=== PATIENT | female | born 1960 | race Caucasian/White ===

== ENCOUNTER 2016-08-24 07:18 | Inpatient (IN) ==
--- NOTE | 2016-08-23 20:58 | Discharge Summary ---
<Donita Webber - Last Filed: 08/24/16 09:42> Date of Encounter: 08/24/16 - Discharge Diagnosis (1) Arthritis of knee, left Priority: Primary Status: Acute (2) Coronary artery disease Priority: Secondary Status: Chronic Qualifiers: Coronary Disease-Associated Artery/Lesion type: unspecified vessel or lesion type [place] vs. transplanted heart: unspecified whether [place] or transplanted heart Associated angina: angina presence unspecified Qualified Code(s): I25.10 - Atherosclerotic heart disease of [place] coronary artery without angina pectoris (3) Morbid obesity with BMI of 50.0-59.9, adult Priority: Secondary Status: Chronic (4) Obstructive sleep apnea Priority: Secondary Status: Chronic (5) Asthma Priority: Secondary Status: Chronic Qualifiers: Asthma severity: unspecified severity Asthma complication type: uncomplicated Qualified Code(s): J45.909 - Unspecified asthma, uncomplicated (6) Hypertension Status: Chronic Qualifiers: Hypertension type: unspecified secondary hypertension Qualified Code(s): I15.9 - Secondary hypertension, unspecified; I15 - Secondary hypertension - Discharge Medications Home Medications: Aspirin Enteric Coated [Aspirin EC] 325 mg PO DAILY #21 tablet. 08/23/16 [Rx] OxyCODONE Immed Rel [Roxicodone 5 MG] 5 - 10 mg PO Q6HR PRN #40 tablet 08/23/16 [Rx] Albuterol Sulfate [Albuterol Inhaler] 2 puff IH Q4HR PRN 08/24/16 [History] Amlodipine Besylate 10 mg PO DAILY 08/24/16 [History] Carvedilol [Coreg] 6.25 mg PO BIDWM 08/24/16 [History] Clopidogrel [Plavix] 75 mg PO DAILY 08/24/16 [History] Cyclobenzaprine [Flexeril] 10 mg PO TID 08/24/16 [History] Duloxetine [Cymbalta] 30 mg PO BID 08/24/16 [History] Furosemide [Lasix] 20 mg PO DAILY PRN 08/24/16 [History] Gabapentin [Neurontin] 600 mg PO TID 08/24/16 [History] Losartan/Hydrochlorothiazide [Hyzaar 100-25 Tablet] 1 each PO DAILY 08/24/16 [ History] Naproxen [Naprosyn] 500 mg PO BID 08/24/16 [History] Omeprazole [PriLOSEC] 40 mg PO DAILY 08/24/16 [History] Sertraline [Zoloft] 100 mg PO DAILY 08/24/16 [History] Allergies/Adverse Reactions: Allergies Penicillins [PCN] Allergy (Verified 08/24/16 08:01) See Comments paralized Primary care physician: LAMONT Edmond - Patient Status Disposition: Transfer Inpatient Rehab Fac Condition: Good - Discharge Instructions Follow Up With: Rei Rivera MD [Partnered Physician] - 09/22/16 7:40 am Donita Webber PAC [Physician Dental Patient Coordinator] - 09/02/16 8:15 am Jamia Keating CNP [Primary Care Provider] - - Hospital Course Hospital course: Ms. Clemente is a 56 year old female - Time Spent with Patient Total time spent providing and/or coordinating discharge services: <Rei Rivera - Last Filed: 08/27/16 08:15> Date of Encounter: 08/27/16 Time of Encounter: 08:14 - Discharge Diagnosis (1) Arthritis of knee, left Priority: Primary Status: Acute (2) Asthma Priority: Secondary Status: Chronic Qualifiers: Asthma severity: unspecified severity Asthma complication type: uncomplicated Qualified Code(s): J45.909 - Unspecified asthma, uncomplicated (3) Obstructive sleep apnea Priority: Secondary Status: Chronic (4) Morbid obesity with BMI of 50.0-59.9, adult Priority: Secondary Status: Chronic (5) Coronary artery disease Status: Chronic Qualifiers: Coronary Disease-Associated Artery/Lesion type: unspecified vessel or lesion type [place] vs. transplanted heart: unspecified whether [place] or transplanted heart Associated angina: angina presence unspecified Qualified Code(s): I25.10 - Atherosclerotic heart disease of [place] coronary artery without angina pectoris (6) Hypertension Priority: Secondary Status: Chronic Qualifiers: Hypertension type: unspecified secondary hypertension Qualified Code(s): I15.9 - Secondary hypertension, unspecified; I15 - Secondary hypertension (7) Acute renal injury Priority: Primary Status: Acute (8) Acute blood loss anemia Priority: Primary Status: Acute Primary care physician: LAMONT Edmond - Patient Status Functional capacity at discharge: uses cane/walker Overall status at discharge: patient is progressing back to baseline - Hospital Course Hospital course: Ms. Clemente is a 56 year old female The patient had an uneventful postoperative course. They received antibiotics and physical therapy and were discharged in stable condition. There will follow -up in the office in 2 weeks. Patient had change renal function which normalized within 24 hours after hydration. Discharge stable condition on aspirin for DVT prophylaxis. - Time Spent with Patient Total time spent providing and/or coordinating discharge services:
[2016-08-24] MEDS ORDERED: Albuterol 2.5 MG/3 ML NEBULIZER IH ONE ×2 (07:36→11:14)
[2016-08-24] MEDS ORDERED: Clindamycin 900 MG/50 ML 900 MG/50 ML IV.SOLN IVPB ONE (07:36)
[2016-08-24] MEDS ORDERED: Ringers Solution, Lactated 1,000 ML IVC SCH (07:45)
--- NOTE | 2016-08-24 07:54 | History & Physical Report ---
Date of Encounter: 08/24/16 Time of Encounter: 07:53 24 Hour HP Update - Instructions Instructions: If the History and Physical is less than 30 days old and was completed prior to A.M. admission and or procedure and has NOT been updated on calendar day of procedure please complete this update prior to performing procedure. - Update Patient reports changes in Medical Condition: No Changes in assessment/condition: No Changes in Medication: No Preop tests/diagnostics Reviewed: Yes Surgery Remains Indicated: Yes Consent for Planned Operative Procedure(s) Verified: Yes - Pre-Operative Checklist Preoperative Checklist Indicated: No Prophylactic Antibiotic Ordered: Yes Is VTE Prophylaxis Indicated?: Yes
[2016-08-24] MEDS ORDERED: *HR* FentaNYL (PF) 100 MCG/2 ML VIAL ONE (08:30)
[2016-08-24] MEDS ORDERED: *HR* Midazolam HCl 2 MG/2 ML VIAL ONE (08:31)
[2016-08-24] MEDS ORDERED: *HR* Propofol 200 MG/20 ML VIAL IVP ONE (08:31)
[2016-08-24] MEDS ORDERED: Famotidine 20 MG/2 ML VIAL IVP ONE (08:43)
[2016-08-24] MEDS ORDERED: *HR* HYDROmorphone (PF) 1 MG/ML SYRINGE IVP PRN ×2 (08:53→12:27)
--- NOTE | 2016-08-24 09:03 | Anesthesia Evaluation PreOp ---
Date of Encounter: 08/24/16 Time of Encounter: 09:00 - Past History Planned Operation: Left TKA Cardiac History: AR, HTN, Hyperlipidemia Pulmonary History: Asthma, SHAYNE Dx (CPAP) BELT PUNCHER History: Denies Any Significant HX Other Medical History: GERD, Other ([place], BiPolar, Depression) Anesthesia History: No Prior Anesthetic Complications : No Alcohol Use: none Drug use: none Medications and Allergies Aspirin Enteric Coated [Aspirin EC] 325 mg PO DAILY #21 tablet. 08/23/16 [Rx] OxyCODONE Immed Rel [Roxicodone 5 MG] 5 - 10 mg PO Q6HR PRN #40 tablet 08/23/16 [Rx] Albuterol Sulfate [Albuterol Inhaler] 2 puff IH Q4HR PRN 08/24/16 [History] Amlodipine Besylate 10 mg PO DAILY 08/24/16 [History] Carvedilol [Coreg] 6.25 mg PO BIDWM 08/24/16 [History] Clopidogrel [Plavix] 75 mg PO DAILY 08/24/16 [History] Cyclobenzaprine [Flexeril] 10 mg PO TID 08/24/16 [History] Duloxetine [Cymbalta] 30 mg PO BID 08/24/16 [History] Furosemide [Lasix] 20 mg PO DAILY PRN 08/24/16 [History] Gabapentin [Neurontin] 300 mg PO TID 08/24/16 [History] Losartan/Hydrochlorothiazide [Hyzaar 100-25 Tablet] 1 each PO DAILY 08/24/16 [ History] Naproxen [Naprosyn] 500 mg PO BID 08/24/16 [History] Omeprazole [PriLOSEC] 40 mg PO DAILY 08/24/16 [History] Sertraline [Zoloft] 100 mg PO DAILY 08/24/16 [History] Allergies Penicillins [PCN] Allergy (Verified 08/24/16 08:01) See Comments paralized - Meds/Allergy Pre-op Review Medications Reviewed: Yes Allergies Reviewed: Yes Beta Blockers on Current Med List: Yes (Took Coreg today 0500) Anesthesia Results - Labs Laboratory Tests 08/11/16 08/11/16 13:55 13:55 Hgb 12.5 Hct 39.5 Plt Count 341 Sodium 141 Potassium 3.8 BUN 8 Creatinine 0.93 - Imaging EKG: report reviewed (SR with Arrhythmia) Anesthesia Exam O2 Sat Height 1.7 m Height 1.7 m Height 1.7 m Weight 145.15 kg Weight 145.15 kg Weight 145.15 kg O2 Sat by Pulse Oximetry 95 O2 Sat by Pulse Oximetry 95 Vital Signs Temp Pulse Resp BP Pulse Ox 97.7 F 63 18 144/74 95 08/24/16 07:41 08/24/16 07:41 08/24/16 07:41 08/24/16 07:41 08/24/16 07:41 Height: 5'7 Weight: 320 lbs NPO (# of Hours): MN - HEENT Pupil (Motor): Pupils equal, EOMI Mallampati: III Teeth: Normal Oral Opening: Less than or equal to 3 - BELT PUNCHER LOC: Oriented BELT PUNCHER Motor: Normal RUE, Normal LUE, Normal RLE, Normal LLE, Normal Face BELT PUNCHER Sensory: Normal: RUE, LUE, RLE, LLE, Face - Cardiac Rhythm: Regular Murmur: None JVD: No Carotid Bruit: No - Pulmonary Breath Sounds: bilateral Clear Respiratory Effort: Symmetrical Anesthesia Assess/Plan ASA Score: 3 (CAD, HTH, SHAYNE, [place]) Modified [place] Scale for Level of Consciousness: Cooperative, oriented, and tranquil Anesthetic Plan: General, Regional Autologous Blood: Yes Monitoring Plan: Standard Monitors Recovery Plan: PACU (Discussed GA and RA, agrees to proceed)
[2016-08-24] MEDS ORDERED: Tetracaine/PF 20 MG/2 ML AMPUL SPINA ONE (09:36)
--- NOTE | 2016-08-24 10:14 | Anesthesia Procedures ---
Date of Encounter: 08/24/16 Time of Encounter: 09:00 Procedures: Anesthesia - Nerve Block Procedure Date: 08/24/16 Time: 09:50 Pre-op Diagnosis: Left Knee OA Surgical Procedure: Left TKA Checklist: Correct Patient Identifier Correct side: Left Blood Thinner: Yes Monitor Applied: EKG, BP, Pulse Oximetry Supplemental Oxygen via Nasal Cannula (L/min): 2 Sedation: Versed (mg): 2 Sedation: Fentanyl (mcg): 100 Indication: Post Op Analgesia Pre-op Neuro Deficits: No Block Type: Femoral Catheter placed: No Depth at skin (cm): 3 Sterile Technique: Yes Ultrasound used: Yes Anatomy identified: Yes Visual spread of Local: Yes Neuro Stimulation: Yes Nerve Stimulator Range: 0.2 - 0.4 mA Blood on Needle Aspiration: No Smooth Injection of Local: Yes Pain with Injection of Local: No Prep: Chlorhexadine, Alcohol Needle: 22 x 50 mm Stimuplex Local: Tetracaine (20), Other (Bupivacaine) Volume (cc): 30 Number of Attempts: 1 Complications: None/effective block Vitals: Vital Signs/O2 Sat/Glucose, Most Current Temp Pulse Resp BP Pulse Ox 08/24/16 09:36 62 16 154/76 98 08/24/16 09:28 62 17 149/78 95 08/24/16 08:15 18 144/74 95 08/24/16 07:41 97.7 F 63 18 144/74 95
[2016-08-24] MEDS ORDERED: *HR* HYDROmorphone 2 MG/ML SYRINGE ONE (10:21)
--- NOTE | 2016-08-24 10:38 | Orthopedic Operative Note ---
Date of procedure: 08/24/16 Pre-op diagnosis: Left knee arthritis Post-op diagnosis: same Procedure: Procedure: Left Total knee replacement Estimated blood loss: 200 cc Hardware: Arthrex Femur: 6 Tibia: 4 PS insert: 13 Patella: 37 Exam Under anesthesia: Full flexion loss extension 10 degrees no instability Procedural Notes: Patient noted to have grade 4 arthritic changes medial compartment grade 3 arthritic changes patellofemoral joint. Operative procedure: The patient was brought to the operating room and placed on the operating room table. After general anesthesia was administered the operative knee was examined. Findings were noted in the exam under anesthesia. The operative extremity was prepped and draped in sterile surgical fashion. The patient received IV antibiotics prior to skin incision. A standard midline incision was made centered over the patella. The incision was made through the skin and subcutaneous tissue. A medial parapatellar tendon approach was performed. Care was taken to preserve tissue along the medial aspect of the patella. And to protect the patella tendon. The deep MCL was released off the medial tibia. The infra patella fat pad was excised. Knee was brought into flexion. Patient noted to have grade 4 arthritic changes medial compartment grade 3 arthritic changes patellofemoral joint. The entry hole was made for the intramedullary femoral guide. The guide was seated in 6 degrees of valgus. Anterior cut was made followed by the distal cut. The ACL the PCL the medial and the lateral menisci were excised. The tibia was subluxed forward. The entry hole was made for the intramedullary tibial guide. Guide was seated to resect 2 mm off the more abnormal side. The knee was brought into flexion the distal femur was sized to a 6. The femoral guide was seated, the anterior cut was made followed by the posterior condylar cut, followed by the chamfer cuts. The finishing guide was seated the box cut was made and the lug holes were drilled. The tibia was sized to a 4 , the tibial tray was seated and prepared with the large drill followed by the fin cutter. Trial reduction revealed full extension no varus valgus instability with the appropriate 13 PS Darcy. The patella was everted and cut was made at the level of the insertion of the quadriceps and patella tendon. The patella was sized to a 37 the guide was seated and the lug holes are drilled. Trial reduction revealed excellent patella tracking. All trial components were removed all bony surfaces were irrigated. The tibia was cemented first followed by the femur. The 13 PS Darcy was seated and the knee was brought into full extension. The patella was cemented and held in place with the patellar holding clamp. After the cement had hardened, the knee sat for 2 minutes with a Betadine saline solution. The knee was then irrigated out with 2 L of pulse irrigation. The extensor mechanism was closed with #2 FiberWire suture and #2 PDS suture. The subcutaneous tissue was then irrigated and closed deep with #1 PDS suture superficially with 0 PDS suture and skin was closed with skin jose manuel and Dermabond. The patient was then placed in a sterile dressing and a postoperative brace extubated and transferred to recovery room in stable condition. Anesthesia: SUMA Surgeon: Rei Rivera Bursar: Donita Webber Condition: stable Disposition: PACU
[2016-08-24] MEDS ORDERED: Dexamethasone 4 MG/ML VIAL ONE (10:39)
[2016-08-24] MEDS ORDERED: Ondansetron 4 MG/2 ML VIAL ONE (10:39)
[2016-08-24] MEDS ORDERED: Albuterol 2.5 MG/3 ML NEBULIZER ONE (11:15)
[2016-08-24 11:25] LABS: Hematocrit 39.2 % (35.3-44.9); Hemoglobin 12.2 g/dL (11.5-15.4)
--- NOTE | 2016-08-24 11:54 | Anesthesia Evaluation Post Op ---
Date of Encounter: 08/24/16 Time of Encounter: 11:52 - Vital Signs Vital Signs: vss - Lungs Lungs: Clear Ascult./Percussion (to be maintained on CPAP as home) - Airway Airway: Non-obstructed - Cardiovascular Regular Rate - Mental Status Mental Status: Asleep with brisk response to light stimulation - Pain Pain Scale used: Osborn-Jolene (Faces) (tolerable) - Nausea Vomiting Nausea Vomiting: Not Present - Discharge PostOp Status: Transfer Patient to floor (CPAP to be maintained, and continous pulse ox.)
[2016-08-24] MEDS ORDERED: Sennosides 8.6 MG TABLET PO PRN (12:27)
[2016-08-24] MEDS ORDERED: Acetaminophen 325 MG TABLET PO PRN (12:27)
[2016-08-24] MEDS ORDERED: Ondansetron 4 MG/2 ML VIAL IVP PRN (12:27)
[2016-08-24] MEDS ORDERED: Furosemide 20 MG TABLET PO PRN (12:27)
[2016-08-24] MEDS ORDERED: MOM Conc 10 ML UD.LIQ PO PRN (12:27)
[2016-08-24] MEDS ORDERED: Temazepam 15 MG CAPSULE PO PRN (12:27)
[2016-08-24] MEDS ORDERED: Albuterol Neb 1.25 MG/3 ML VIAL IH ONE (12:27)
[2016-08-24] MEDS ORDERED: Naloxone 0.4 MG/ML INJ IVP PRN (12:27)
[2016-08-24] MEDS: Ringers Solution, Lactated 1,000 ML IVC SCH (13:03)
[2016-08-24] MEDS: Gabapentin 300 MG CAPSULE PO SCH ×2 (14:49→20:03)
[2016-08-24] MEDS: *HR* OxyCODONE Immed Rel 5 MG TABLET PO PRN (14:54)
[2016-08-24] MEDS ORDERED: *HR* Enoxaparin 30 MG/0.3 ML SYRINGE SQ SCH (18:00)
[2016-08-24] MEDS: *HR* Enoxaparin 30 MG/0.3 ML SYRINGE SQ SCH (18:05)
[2016-08-24] MEDS: Clindamycin 900 MG/50 ML 900 MG/50 ML IV.SOLN IVPB SCH (18:05)
[2016-08-25] MEDS: *HR* OxyCODONE Immed Rel 5 MG TABLET PO PRN ×4 (00:09→17:43)
[2016-08-25] MEDS: Clindamycin 900 MG/50 ML 900 MG/50 ML IV.SOLN IVPB SCH (01:11)
[2016-08-25] MEDS: Ringers Solution, Lactated 1,000 ML IVC SCH (01:12)
[2016-08-25 06:08] LABS: Hematocrit 36.1 % (35.3-44.9); Hemoglobin 11.1 g/dL (11.5-15.4)
[2016-08-25 06:18] LABS: Calcium 8.9 mg/dL (8.6-10.8); Potassium 4.2 mEq/L (3.5-4.5)
--- NOTE | 2016-08-25 06:35 | Orthopedics Progress Note ---
Date of Encounter: 08/25/16 Time of Encounter: 06:34 - Assessment and Plan (1) Arthritis of knee, left Current Visit: Yes Status: Acute (2) Asthma Current Visit: Yes Status: Chronic Qualifiers: Asthma severity: unspecified severity Asthma complication type: uncomplicated Qualified Code(s): J45.909 - Unspecified asthma, uncomplicated (3) Obstructive sleep apnea Current Visit: Yes Status: Chronic (4) Morbid obesity with BMI of 50.0-59.9, adult Current Visit: Yes Status: Chronic (5) Coronary artery disease Current Visit: Yes Status: Chronic Qualifiers: Coronary Disease-Associated Artery/Lesion type: unspecified vessel or lesion type [place] vs. transplanted heart: unspecified whether [place] or transplanted heart Associated angina: angina presence unspecified Qualified Code(s): I25.10 - Atherosclerotic heart disease of [place] coronary artery without angina pectoris (6) Hypertension Current Visit: Yes Status: Chronic Qualifiers: Hypertension type: unspecified secondary hypertension Qualified Code(s): I15.9 - Secondary hypertension, unspecified; I15 - Secondary hypertension Subjective Interval history: Patient was seen this morning doing well without complaints. Afebrile vital signs stable. Operative extremity: Neurovascularly intact Dressing clean dry and intact Calves nontender Assessment and plan: Continue with postoperative care Hematocrit 36 Objective Vital signs: Vital Signs Temp Pulse Resp BP Pulse Ox 08/25/16 03:44 98.7 F 66 16 128/86 97 08/24/16 23:46 98.6 F 65 17 103/70 98 08/24/16 22:05 14 98 08/24/16 19:57 97.8 F 63 17 116/70 92 L 08/24/16 16:01 56 18 116/69 97 08/24/16 15:14 97.3 F L 56 18 116/69 97 08/24/16 14:35 97.8 F 58 15 119/65 96 08/24/16 13:30 97.8 F 59 10 132/99 96 08/24/16 13:03 97.7 F 57 9 127/81 97 08/24/16 12:41 15 97 08/24/16 12:32 98.3 F 60 16 99/65 94 L 08/24/16 12:15 16 98 08/24/16 12:09 98.9 F 60 16 109/63 97 08/24/16 11:59 65 14 116/73 97 08/24/16 11:49 70 14 127/56 97 08/24/16 11:39 97.5 F L 68 16 113/69 95 08/24/16 11:29 63 14 100/67 96 08/24/16 11:19 67 12 114/59 100 08/24/16 11:09 98.1 F 61 12 103/73 94 L 08/24/16 09:36 62 16 154/76 98 08/24/16 09:28 62 17 149/78 95 08/24/16 08:15 18 144/74 95 08/24/16 07:41 97.7 F 63 18 144/74 95 Intake and Output 08/24/16 08/24/16 08/25/16 15:59 23:59 07:59 Intake Total 50 / 50 150 / 150 1000 / 1000 Output Total 200 / 200 Balance -150 / -150 150 / 150 1000 / 1000 Intake: IV Fluids 50 / 50 50 / 50 1000 / 1000 Lactated Ringers 1,000 ML 1000 / 1000 @ 75 mls/hr IVC .[id number] GE Rx#:[id number] Cleocin 900 MG/50 ML 900 50 / 50 50 / 50 mg In 50 ml @ 50 mls/hr IVPB Q8H GE Rx#: [id number] Oral 0 / 0 100 / 100 Output: Estimated Blood Loss 200 / 200 Other: Meal Dinner Percent of Meal Consumed 75% Weight 145.15 kg - Labs CBC & BMP: 08/25/16 05:11 08/25/16 05:11 Labs: Abnormal lab results Hgb 11.1 g/dL (11.5-15.4) L 08/25/16 05:11 BUN 23 mg/dL (7-20) H 08/25/16 05:11 Creatinine 1.90 mg/dL (0.57-1.11) H 08/25/16 05:11 Est GFR ( Amer) 33 (> 60) L 08/25/16 05:11 Est GFR (Non-Af Amer) 27 (> 60) L 08/25/16 05:11 Glucose 114 mg/dL (70-99) H 08/25/16 05:11 - VTE Documentation of Mechanical Device: Venous foot pump, device Consult Discharge Plan - Plan Referrals: Jamia Keating CNP [Primary Care Provider] -
[2016-08-25] MEDS: *HR* Enoxaparin 30 MG/0.3 ML SYRINGE SQ SCH ×2 (07:31→17:43)
[2016-08-25] MEDS ORDERED: 0.9 % Sodium Chloride 1,000 ML IVC ONE (08:13)
[2016-08-25] MEDS: Losartan/HCTZ 50-12.5 TABLET PO SCH (08:41)
[2016-08-25] MEDS: amLODIPine 5 MG TABLET PO SCH (08:42)
[2016-08-25] MEDS: Gabapentin 300 MG CAPSULE PO SCH ×3 (08:42→21:44)
[2016-08-26] MEDS: *HR* OxyCODONE Immed Rel 5 MG TABLET PO PRN ×3 (01:51→17:22)
[2016-08-26] MEDS: *HR* Enoxaparin 30 MG/0.3 ML SYRINGE SQ SCH ×2 (06:15→17:21)
[2016-08-26 06:42] LABS: Hemoglobin 9.9 g/dL (11.5-15.4)
[2016-08-26 06:53] LABS: Calcium 8.5 mg/dL (8.6-10.8); Potassium 3.9 mEq/L (3.5-4.5)
--- NOTE | 2016-08-26 07:37 | Orthopedics Progress Note ---
Date of Encounter: 08/26/16 Time of Encounter: 07:36 - Assessment and Plan (1) Arthritis of knee, left Current Visit: Yes Status: Acute (2) Asthma Current Visit: Yes Status: Chronic Qualifiers: Asthma severity: unspecified severity Asthma complication type: uncomplicated Qualified Code(s): J45.909 - Unspecified asthma, uncomplicated (3) Obstructive sleep apnea Current Visit: Yes Status: Chronic (4) Morbid obesity with BMI of 50.0-59.9, adult Current Visit: Yes Status: Chronic (5) Coronary artery disease Current Visit: Yes Status: Chronic Qualifiers: Coronary Disease-Associated Artery/Lesion type: unspecified vessel or lesion type [place] vs. transplanted heart: unspecified whether [place] or transplanted heart Associated angina: angina presence unspecified Qualified Code(s): I25.10 - Atherosclerotic heart disease of [place] coronary artery without angina pectoris (6) Hypertension Current Visit: Yes Status: Chronic Qualifiers: Hypertension type: unspecified secondary hypertension Qualified Code(s): I15.9 - Secondary hypertension, unspecified; I15 - Secondary hypertension (7) Acute renal injury Current Visit: Yes Status: Acute Subjective Interval history: Patient was seen this morning doing well without complaints. Afebrile vital signs stable. Operative extremity: Neurovascularly intact Dressing clean dry and intact Calves nontender Assessment and plan: Continue with postoperative care Creatinine improving hct 32 Objective Vital signs: Vital Signs Temp Pulse Resp BP Pulse Ox 08/26/16 06:40 98.7 F 84 16 134/73 95 08/26/16 04:04 98.9 F 82 16 130/69 98 08/26/16 01:45 96.7 F L 80 18 137/83 100 08/26/16 00:30 17 97 08/25/16 21:50 98.4 F 76 19 118/73 96 08/25/16 17:40 71 112/71 08/25/16 15:43 99.1 F 60 18 93/47 97 08/25/16 11:00 97.8 F 69 18 112/67 93 L 08/25/16 09:08 96 Intake and Output 08/25/16 08/25/16 08/26/16 15:59 23:59 07:59 Intake Total 1240 / 1240 Output Total 950 / 950 Balance 1240 / 1240 -950 / -950 Intake: IV Fluids 1000 / 1000 0.9 % Sodium Chloride 1, 1000 / 1000 000 ML @ 3750 mls/hr IVC .Q16M ONE Rx#:[id number] Oral 240 / 240 Output: Urine 950 / 950 Other: Meal Lunch Percent of Meal Consumed 100% # Voids 1 - Labs CBC & BMP: 08/26/16 06:17 08/26/16 06:17 Labs: Abnormal lab results Hgb 9.9 g/dL (11.5-15.4) L 08/26/16 06:17 Hct 32.0 % (35.3-44.9) L 08/26/16 06:17 BUN 23 mg/dL (7-20) H 08/26/16 06:17 Creatinine 1.43 mg/dL (0.57-1.11) H 08/26/16 06:17 Est GFR ( Amer) 46 (> 60) L 08/26/16 06:17 Est GFR (Non-Af Amer) 38 (> 60) L 08/26/16 06:17 Glucose 132 mg/dL (70-99) H 08/26/16 06:17 Calcium 8.5 mg/dL (8.6-10.8) L 08/26/16 06:17 - VTE Documentation of Mechanical Device: Venous foot pump, device Consult Discharge Plan - Plan Referrals: Rei Rivera MD [Partnered Physician] - 09/22/16 7:40 am Doniat Webber PAC [Physician Stacker Operator] - 09/02/16 8:15 am Jamia Keating CNP [Primary Care Provider] -
[2016-08-26] MEDS ORDERED: 0.9 % Sodium Chloride 1,000 ML IVC ONE (08:13)
[2016-08-26] MEDS: Losartan/HCTZ 50-12.5 TABLET PO SCH (09:44)
[2016-08-26] MEDS: Gabapentin 300 MG CAPSULE PO SCH ×3 (09:44→20:17)
[2016-08-26] MEDS: amLODIPine 5 MG TABLET PO SCH (09:45)
[2016-08-26] MEDS: Ringers Solution, Lactated 1,000 ML IVC SCH (17:21)
[2016-08-27] MEDS: *HR* OxyCODONE Immed Rel 5 MG TABLET PO PRN ×4 (03:47→21:22)
[2016-08-27] MEDS: *HR* Enoxaparin 30 MG/0.3 ML SYRINGE SQ SCH ×2 (05:44→17:25)
[2016-08-27 06:30] LABS: Alanine Aminotransferase 71 Units/L (0-55); Albumin 2.7 g/dL (3.5-5.0); Albumin/Globulin Ratio 0.7 (1.1-2.2); Alkaline Phosphatase 164 Units/L (38-126); Aspartate Amino Transferase 66 Units/L (5-34); BUN/Creatinine Ratio 14 (6-26); Bilirubin,Total 0.8 mg/dL (0.2-1.2); Blood Urea Nitrogen 15 mg/dL (7-20); Calcium 8.8 mg/dL (8.6-10.8); Carbon Dioxide 31 mEq/L (19-29); Chloride 102 mEq/L (98-109); Globulin 3.8 g/dL (2.4-3.5); Glucose 113 mg/dL (70-99); Osmolality,Calculated 288 (280-300); Potassium 3.7 mEq/L (3.5-4.5); Sodium 138 mEq/L (136-145); Total Protein 6.5 g/dL (6.0-8.3); eGFR For African Americans > 60 (> 60); eGFR For Non-African Americans 51 (> 60)
[2016-08-27 07:12] LABS: Hematocrit 30.2 % (35.3-44.9); Hemoglobin 9.4 g/dL (11.5-15.4)
[2016-08-27] MEDS: Gabapentin 300 MG CAPSULE PO SCH ×3 (08:01→21:22)
[2016-08-27] MEDS: amLODIPine 5 MG TABLET PO SCH (08:01)
[2016-08-27] MEDS: Losartan/HCTZ 50-12.5 TABLET PO SCH (08:02)
[2016-08-27] MEDS: Ringers Solution, Lactated 1,000 ML IVC SCH (08:08)
--- NOTE | 2016-08-27 08:16 | Orthopedics Progress Note ---
Date of Encounter: 08/27/16 Time of Encounter: 08:15 - Assessment and Plan (1) Arthritis of knee, left Current Visit: Yes Status: Acute (2) Asthma Current Visit: Yes Status: Chronic Qualifiers: Asthma severity: unspecified severity Asthma complication type: uncomplicated Qualified Code(s): J45.909 - Unspecified asthma, uncomplicated (3) Obstructive sleep apnea Current Visit: Yes Status: Chronic (4) Morbid obesity with BMI of 50.0-59.9, adult Current Visit: Yes Status: Chronic (5) Coronary artery disease Current Visit: Yes Status: Chronic Qualifiers: Coronary Disease-Associated Artery/Lesion type: unspecified vessel or lesion type [place] vs. transplanted heart: unspecified whether [place] or transplanted heart Associated angina: angina presence unspecified Qualified Code(s): I25.10 - Atherosclerotic heart disease of [place] coronary artery without angina pectoris (6) Hypertension Current Visit: Yes Status: Chronic Qualifiers: Hypertension type: unspecified secondary hypertension Qualified Code(s): I15.9 - Secondary hypertension, unspecified; I15 - Secondary hypertension (7) Acute renal injury Current Visit: Yes Status: Acute (8) Acute blood loss anemia Current Visit: Yes Status: Acute Subjective Interval history: Patient was seen this morning doing well without complaints. Afebrile vital signs stable. Operative extremity: Neurovascularly intact Dressing clean dry and intact Calves nontender Assessment and plan: Continue with postoperative care discharge today Objective Vital signs: Vital Signs Temp Pulse Resp BP Pulse Ox 08/27/16 06:56 98.1 F 80 16 103/67 90 L 08/27/16 04:56 97.7 F 74 16 105/72 94 L 08/27/16 01:00 94 L 08/27/16 00:38 99.3 F 66 15 107/67 94 L 08/26/16 23:40 15 96 08/26/16 21:24 98.3 F 77 16 98/64 95 08/26/16 21:00 94 L 08/26/16 20:29 20 94 L 08/26/16 14:27 98.2 F 96 15 134/76 97 08/26/16 10:12 98.4 F 91 16 138/76 96 Intake and Output 08/26/16 08/27/16 08/27/16 23:59 07:59 15:59 Intake Total 900 / 900 Output Total 150 / 150 Balance 750 / 750 Intake: IV Fluids 900 / 900 Lactated Ringers 1,000 ML 900 / 900 @ 75 mls/hr IVC .[id number] GE Rx#:[id number] Output: Urine 150 / 150 Other: Percent of Meal Consumed 0% - Labs CBC & BMP: 08/27/16 05:53 08/27/16 05:53 Labs: Abnormal lab results Hgb 9.4 g/dL (11.5-15.4) L 08/27/16 05:53 Hct 30.2 % (35.3-44.9) L 08/27/16 05:53 Carbon Dioxide 31 mEq/L (19-29) H 08/27/16 05:53 Est GFR (Non-Af Amer) 51 (> 60) L 08/27/16 05:53 Glucose 113 mg/dL (70-99) H 08/27/16 05:53 AST 66 Units/L (5-34) H 08/27/16 05:53 ALT 71 Units/L (0-55) H 08/27/16 05:53 Alkaline Phosphatase 164 Units/L (38-126) H 08/27/16 05:53 Albumin 2.7 g/dL (3.5-5.0) L 08/27/16 05:53 Globulin 3.8 g/dL (2.4-3.5) H 08/27/16 05:53 Albumin/Globulin Ratio 0.7 (1.1-2.2) L 08/27/16 05:53 - VTE Documentation of Mechanical Device: Venous foot pump, device Consult Discharge Plan - Plan Referrals: Rei Rivera MD [Partnered Physician] - 09/22/16 7:40 am Donita Webber PAC [Physician Purification Operator] - 09/02/16 8:15 am Jamia Keating CNP [Primary Care Provider] -
[2016-08-28] MEDS: *HR* Enoxaparin 30 MG/0.3 ML SYRINGE SQ SCH ×2 (06:06→17:28)
--- NOTE | 2016-08-28 06:28 | Orthopedics Progress Note ---
Date of Encounter: 08/28/16 Time of Encounter: 06:27 - Assessment and Plan (1) Arthritis of knee, left Current Visit: Yes Status: Acute (2) Asthma Current Visit: Yes Status: Chronic Qualifiers: Asthma severity: unspecified severity Asthma complication type: uncomplicated Qualified Code(s): J45.909 - Unspecified asthma, uncomplicated (3) Obstructive sleep apnea Current Visit: Yes Status: Chronic (4) Morbid obesity with BMI of 50.0-59.9, adult Current Visit: Yes Status: Chronic (5) Coronary artery disease Current Visit: Yes Status: Chronic Qualifiers: Coronary Disease-Associated Artery/Lesion type: unspecified vessel or lesion type [place] vs. transplanted heart: unspecified whether [place] or transplanted heart Associated angina: angina presence unspecified Qualified Code(s): I25.10 - Atherosclerotic heart disease of [place] coronary artery without angina pectoris (6) Hypertension Current Visit: Yes Status: Chronic Qualifiers: Hypertension type: unspecified secondary hypertension Qualified Code(s): I15.9 - Secondary hypertension, unspecified; I15 - Secondary hypertension (7) Acute renal injury Current Visit: Yes Status: Acute (8) Acute blood loss anemia Current Visit: Yes Status: Acute Subjective Interval history: Patient was seen this morning doing well without complaints. Afebrile vital signs stable. Operative extremity: Neurovascularly intact Dressing clean dry and intact Calves nontender Assessment and plan: Continue with postoperative care discharge today Objective Vital signs: Vital Signs Temp Pulse Resp BP Pulse Ox 08/28/16 01:22 98.1 F 73 15 130/80 94 L 08/27/16 21:48 99.6 F 70 16 127/78 98 08/27/16 21:25 98 08/27/16 15:37 98.9 F 78 16 138/75 100 08/27/16 10:39 98.3 F 72 14 114/68 90 L 08/27/16 06:56 98.1 F 80 16 103/67 90 L Intake and Output 08/27/16 08/27/16 08/28/16 15:59 23:59 07:59 Intake Total 460 / 460 Output Total 750 / 750 300 / 300 Balance -290 / -290 -300 / -300 Intake: Oral 460 / 460 Output: Urine 750 / 750 300 / 300 Other: Meal Breakfast Percent of Meal Consumed 100% # Voids 2 1 - Labs CBC & BMP: 08/27/16 05:53 08/27/16 05:53 Labs: Abnormal lab results Hgb 9.4 g/dL (11.5-15.4) L 08/27/16 05:53 Hct 30.2 % (35.3-44.9) L 08/27/16 05:53 Carbon Dioxide 31 mEq/L (19-29) H 08/27/16 05:53 Est GFR (Non-Af Amer) 51 (> 60) L 08/27/16 05:53 Glucose 113 mg/dL (70-99) H 08/27/16 05:53 AST 66 Units/L (5-34) H 08/27/16 05:53 ALT 71 Units/L (0-55) H 08/27/16 05:53 Alkaline Phosphatase 164 Units/L (38-126) H 08/27/16 05:53 Albumin 2.7 g/dL (3.5-5.0) L 08/27/16 05:53 Globulin 3.8 g/dL (2.4-3.5) H 08/27/16 05:53 Albumin/Globulin Ratio 0.7 (1.1-2.2) L 08/27/16 05:53 - VTE Documentation of Mechanical Device: Venous foot pump, device Consult Discharge Plan - Plan Referrals: Rei Rivera MD [Partnered Physician] - 09/22/16 7:40 am Donita Webber PAC [Physician Hourly Team Members] - 09/02/16 8:15 am Jamia Keating CNP [Primary Care Provider] -
[2016-08-28] MEDS: amLODIPine 5 MG TABLET PO SCH (07:37)
[2016-08-28] MEDS: *HR* OxyCODONE Immed Rel 5 MG TABLET PO PRN ×2 (07:38→15:21)
[2016-08-28] MEDS: Losartan/HCTZ 50-12.5 TABLET PO SCH (07:38)
[2016-08-28] MEDS: Gabapentin 300 MG CAPSULE PO SCH ×3 (07:38→21:02)
[2016-08-28 08:54] LABS: Hematocrit 28.2 % (35.3-44.9); Hemoglobin 8.8 g/dL (11.5-15.4)
[2016-08-28 09:06] LABS: BUN/Creatinine Ratio 14 (6-26); Blood Urea Nitrogen 11 mg/dL (7-20); Calcium 8.8 mg/dL (8.6-10.8); Carbon Dioxide 32 mEq/L (19-29); Chloride 100 mEq/L (98-109); Glucose 104 mg/dL (70-99); Osmolality,Calculated 290 (280-300); Potassium 3.7 mEq/L (3.5-4.5); Sodium 140 mEq/L (136-145); eGFR For African Americans > 60 (> 60); eGFR For Non-African Americans > 60 (> 60)
[2016-08-29 07:03] LABS: Hematocrit 27.6 % (35.3-44.9); Hemoglobin 8.6 g/dL (11.5-15.4)
[2016-08-29] MEDS: *HR* Enoxaparin 30 MG/0.3 ML SYRINGE SQ SCH ×2 (07:23→17:24)
[2016-08-29] MEDS: *HR* OxyCODONE Immed Rel 5 MG TABLET PO PRN ×2 (09:14→17:23)
[2016-08-29] MEDS: amLODIPine 5 MG TABLET PO SCH (09:15)
[2016-08-29] MEDS: Losartan/HCTZ 50-12.5 TABLET PO SCH (09:15)
[2016-08-29] MEDS: Gabapentin 300 MG CAPSULE PO SCH ×3 (09:15→21:06)
[2016-08-30] MEDS: *HR* Enoxaparin 30 MG/0.3 ML SYRINGE SQ SCH ×2 (06:25→16:31)
[2016-08-30] MEDS: amLODIPine 5 MG TABLET PO SCH (07:46)
[2016-08-30] MEDS: *HR* OxyCODONE Immed Rel 5 MG TABLET PO PRN ×3 (07:46→17:48)
[2016-08-30] MEDS: Gabapentin 300 MG CAPSULE PO SCH ×3 (07:47→21:20)
[2016-08-30] MEDS: Losartan/HCTZ 50-12.5 TABLET PO SCH (07:47)
[2016-08-30] MEDS: GuaiFENesin/Dextromethorphan TABLET PO SCH ×2 (11:37→21:20)
--- NOTE | 2016-08-30 18:44 | Orthopedics Progress Note ---
Date of Encounter: 08/29/16 Time of Encounter: 01:40 Subjective Principal diagnosis: s/p left TKA Interval history: The patient is without complaints. Afebrile vital signs are stable. Oxygen saturations on 2 L 97% percent range. However, she desaturates into the mid 80s on room air. Incision is clean dry and intact. Neurovascularly intact with regard to bilateral lower extremities. Assessment :stable. Plan mobilize ,continue analgesics, discharge planning. Objective Vital signs: Vital Signs Temp Pulse Resp BP Pulse Ox 08/30/16 15:21 98.0 F 65 17 112/72 93 L 08/30/16 11:15 94 L 08/30/16 10:09 98.3 F 84 16 129/64 95 08/30/16 07:00 97 08/30/16 06:52 98.5 F 78 16 126/68 92 L 08/30/16 00:11 98.8 F 73 16 130/73 92 L 08/29/16 20:38 98.6 F 65 15 105/67 92 L Intake and Output 08/30/16 08/30/16 08/30/16 07:59 15:59 23:59 Intake Total 650 / 650 Output Total 600 / 600 450 / 450 Balance 50 / 50 -450 / -450 Intake: Oral 650 / 650 Output: Urine 600 / 600 450 / 450 Other: Meal Lunch Percent of Meal Consumed 100% # Voids 1 - Labs CBC & BMP: 08/29/16 06:57 08/28/16 08:17 Labs: Abnormal lab results Hgb 8.6 g/dL (11.5-15.4) L 08/29/16 06:57 Hct 27.6 % (35.3-44.9) L 08/29/16 06:57 Carbon Dioxide 32 mEq/L (19-29) H 08/28/16 08:17 Glucose 104 mg/dL (70-99) H 08/28/16 08:17 AST 66 Units/L (5-34) H 08/27/16 05:53 ALT 71 Units/L (0-55) H 08/27/16 05:53 Alkaline Phosphatase 164 Units/L (38-126) H 08/27/16 05:53 Albumin 2.7 g/dL (3.5-5.0) L 08/27/16 05:53 Globulin 3.8 g/dL (2.4-3.5) H 08/27/16 05:53 Albumin/Globulin Ratio 0.7 (1.1-2.2) L 08/27/16 05:53 - VTE Documentation of Mechanical Device: Venous foot pump, device Consult Discharge Plan - Plan Referrals: Rei Rivera MD [Partnered Physician] - 09/22/16 7:40 am Donita Webber, PAC [Physician Sprayer Machine] - 09/02/16 8:15 am Jamia Keating FERRY HAND [Primary Care Provider] -
--- NOTE | 2016-08-30 18:46 | Orthopedics Progress Note ---
Date of Encounter: 08/30/16 Time of Encounter: 18:44 Subjective Principal diagnosis: s/p left TKA Interval history: The patient is without complaints. Afebrile vital signs are stable. Oxygen saturations on 2 L 97% percent range. However, she desaturates into the mid 80s on room air. Dr. Rivera ordered chest x-ray today which is negative for infiltrates. Incision is clean dry and intact. Neurovascularly intact with regard to bilateral lower extremities. Assessment :stable. Plan mobilize , respiratory consult for pulmonary toilet and saw treatments continue analgesics , discharge planning. Objective Vital signs: Vital Signs Temp Pulse Resp BP Pulse Ox 08/30/16 15:21 98.0 F 65 17 112/72 93 L 08/30/16 11:15 94 L 08/30/16 10:09 98.3 F 84 16 129/64 95 08/30/16 07:00 97 08/30/16 06:52 98.5 F 78 16 126/68 92 L 08/30/16 00:11 98.8 F 73 16 130/73 92 L 08/29/16 20:38 98.6 F 65 15 105/67 92 L Intake and Output 08/30/16 08/30/16 08/30/16 07:59 15:59 23:59 Intake Total 650 / 650 Output Total 600 / 600 450 / 450 Balance 50 / 50 -450 / -450 Intake: Oral 650 / 650 Output: Urine 600 / 600 450 / 450 Other: Meal Lunch Percent of Meal Consumed 100% # Voids 1 - Labs CBC & BMP: 08/29/16 06:57 08/28/16 08:17 Labs: Abnormal lab results Hgb 8.6 g/dL (11.5-15.4) L 08/29/16 06:57 Hct 27.6 % (35.3-44.9) L 08/29/16 06:57 Carbon Dioxide 32 mEq/L (19-29) H 08/28/16 08:17 Glucose 104 mg/dL (70-99) H 08/28/16 08:17 AST 66 Units/L (5-34) H 08/27/16 05:53 ALT 71 Units/L (0-55) H 08/27/16 05:53 Alkaline Phosphatase 164 Units/L (38-126) H 08/27/16 05:53 Albumin 2.7 g/dL (3.5-5.0) L 08/27/16 05:53 Globulin 3.8 g/dL (2.4-3.5) H 08/27/16 05:53 Albumin/Globulin Ratio 0.7 (1.1-2.2) L 08/27/16 05:53 - VTE Documentation of Mechanical Device: Venous foot pump, device Consult Discharge Plan - Plan Referrals: Rei Rivera MD [Partnered Physician] - 09/22/16 7:40 am Donita Webber PAC [Physician Snow Technician] - 09/02/16 8:15 am Jamia Keating CNP [Primary Care Provider] -
[2016-08-30] MEDS: Albuterol Neb 1.25 MG/3 ML VIAL IH SCH (20:41)
[2016-08-31] MEDS: *HR* Enoxaparin 30 MG/0.3 ML SYRINGE SQ SCH (05:20)
--- NOTE | 2016-08-31 06:41 | Orthopedics Progress Note ---
Date of Encounter: 08/31/16 Time of Encounter: 06:41 - Assessment and Plan (1) Arthritis of knee, left Current Visit: Yes Status: Acute (2) Asthma Current Visit: Yes Status: Chronic Qualifiers: Asthma severity: unspecified severity Asthma complication type: uncomplicated Qualified Code(s): J45.909 - Unspecified asthma, uncomplicated (3) Obstructive sleep apnea Current Visit: Yes Status: Chronic (4) Morbid obesity with BMI of 50.0-59.9, adult Current Visit: Yes Status: Chronic (5) Coronary artery disease Current Visit: Yes Status: Chronic Qualifiers: Coronary Disease-Associated Artery/Lesion type: unspecified vessel or lesion type [place] vs. transplanted heart: unspecified whether [place] or transplanted heart Associated angina: angina presence unspecified Qualified Code(s): I25.10 - Atherosclerotic heart disease of [place] coronary artery without angina pectoris (6) Hypertension Current Visit: Yes Status: Chronic Qualifiers: Hypertension type: unspecified secondary hypertension Qualified Code(s): I15.9 - Secondary hypertension, unspecified; I15 - Secondary hypertension (7) Acute renal injury Current Visit: Yes Status: Acute (8) Acute blood loss anemia Current Visit: Yes Status: Acute Subjective Principal diagnosis: s/p left TKA Interval history: Patient was seen this morning doing well without complaints. Afebrile vital signs stable. Operative extremity: Neurovascularly intact Dressing clean dry and intact Calves nontender Assessment and plan: Continue with postoperative care discharge today Objective Vital signs: Vital Signs Temp Pulse Resp BP Pulse Ox 08/31/16 00:02 98.1 F 77 17 136/80 95 08/30/16 20:41 16 95 08/30/16 20:01 93 L 08/30/16 19:42 98.4 F 69 18 117/72 93 L 08/30/16 15:21 98.0 F 65 17 112/72 93 L 08/30/16 11:15 94 L 08/30/16 10:09 98.3 F 84 16 129/64 95 08/30/16 07:00 97 08/30/16 06:52 98.5 F 78 16 126/68 92 L Intake and Output 08/30/16 08/30/16 08/31/16 15:59 23:59 07:59 Intake Total 650 / 650 Output Total 600 / 600 450 / 450 200 / 200 Balance 50 / 50 -450 / -450 -200 / -200 Intake: Oral 650 / 650 Output: Urine 600 / 600 450 / 450 200 / 200 Other: Meal Lunch Percent of Meal Consumed 100% # Voids 1 - Labs CBC & BMP: 08/29/16 06:57 08/28/16 08:17 Labs: Abnormal lab results Hgb 8.6 g/dL (11.5-15.4) L 08/29/16 06:57 Hct 27.6 % (35.3-44.9) L 08/29/16 06:57 Carbon Dioxide 32 mEq/L (19-29) H 08/28/16 08:17 Glucose 104 mg/dL (70-99) H 08/28/16 08:17 AST 66 Units/L (5-34) H 08/27/16 05:53 ALT 71 Units/L (0-55) H 08/27/16 05:53 Alkaline Phosphatase 164 Units/L (38-126) H 08/27/16 05:53 Albumin 2.7 g/dL (3.5-5.0) L 08/27/16 05:53 Globulin 3.8 g/dL (2.4-3.5) H 08/27/16 05:53 Albumin/Globulin Ratio 0.7 (1.1-2.2) L 08/27/16 05:53 - VTE Documentation of Mechanical Device: Venous foot pump, device Consult Discharge Plan - Plan Referrals: Rei Rivera MD [Partnered Physician] - 09/22/16 7:40 am Donita Webber, PAC [Physician Coffee Shop Manager] - 09/02/16 8:15 am Jamia Keating CNP [Primary Care Provider] -
[2016-08-31] MEDS: Losartan/HCTZ 50-12.5 TABLET PO SCH (09:43)
[2016-08-31] MEDS: GuaiFENesin/Dextromethorphan TABLET PO SCH (09:43)
[2016-08-31] MEDS: amLODIPine 5 MG TABLET PO SCH (09:43)
[2016-08-31] MEDS: *HR* OxyCODONE Immed Rel 5 MG TABLET PO PRN (09:43)
[2016-08-31] MEDS: Gabapentin 300 MG CAPSULE PO SCH (09:43)
[2016-08-31] MEDS: Albuterol Neb 1.25 MG/3 ML VIAL IH SCH ×2 (11:41→11:56)
[2016-08-31 11:51] VITALS: BP 104/66
[2016-08-31] MEDS ORDERED: FLU VACC QS2016-17 36MOS UP/PF 0.5 ML SYRINGE IM ONE (13:00)
== END 2016-08-31 15:05 | DRG 470 ==
LOC: SAMDAY 07:18 → 3NENU 12:29
PROVIDERS: ADMIT Orthopaedic Surgery; ATTEND Orthopaedic Surgery

== ENCOUNTER 2016-12-14 11:42 | Inpatient (IN) ==
--- NOTE | 2016-12-13 21:26 | Discharge Summary ---
<Donita Webber - Last Filed: 12/13/16 21:22> Date of Encounter: 12/13/16 - Discharge Diagnosis (1) Arthritis of knee, right Priority: Primary Status: Acute (2) Asthma Priority: Secondary Status: Chronic Qualifiers: Asthma severity: unspecified severity (3) Obstructive sleep apnea Priority: Secondary Status: Chronic (4) Morbid obesity with BMI of 50.0-59.9, adult Priority: Secondary Status: Chronic (5) Coronary artery disease Priority: Secondary Status: Chronic Qualifiers: Coronary Disease-Associated Artery/Lesion type: unspecified vessel or lesion type [place] vs. transplanted heart: unspecified whether [place] or transplanted heart Associated angina: angina presence unspecified Qualified Code(s): I25.10 - Atherosclerotic heart disease of [place] coronary artery without angina pectoris (6) Hypertension Priority: Secondary Status: Chronic Qualifiers: Hypertension type: essential hypertension Qualified Code(s): I10 - Essential (primary) hypertension - Discharge Medications Home Medications: Albuterol Sulfate [Albuterol Inhaler] 2 puff IH Q4HR PRN 08/24/16 [History] Amlodipine Besylate 10 mg PO DAILY 08/24/16 [History] Carvedilol [Coreg] 6.25 mg PO BIDWM 08/24/16 [History] Clopidogrel [Plavix] 75 mg PO DAILY 08/24/16 [History] Cyclobenzaprine [Flexeril] 10 mg PO TID 08/24/16 [History] Furosemide [Lasix] 20 mg PO DAILY PRN 08/24/16 [History] Gabapentin [Neurontin] 600 mg PO TID 08/24/16 [History] Losartan/Hydrochlorothiazide [Hyzaar 100-25 Tablet] 1 each PO DAILY 08/24/16 [ History] Naproxen [Naprosyn] 500 mg PO BID 08/24/16 [History] Omeprazole [PriLOSEC] 40 mg PO DAILY 08/24/16 [History] Sertraline [Zoloft] 100 mg PO DAILY 08/24/16 [History] Aspirin Enteric Coated [Aspirin EC] 325 mg PO DAILY #21 tablet. 12/13/16 [Rx] OxyCODONE Immed Rel [Roxicodone 5 MG] 5 - 10 mg PO Q6HR PRN #40 tablet 12/13/16 [Rx] Allergies/Adverse Reactions: Allergies Penicillins [PCN] Adverse Reaction (Verified 12/14/16 12:18) See Comments paralized Primary care physician: Nikita Hancock MD - Patient Status Disposition: Transfer SNF Condition: Good - Discharge Instructions Instructions: Asthma (DC), Total Knee Replacement (DC), Chronic Hypertension ( DC), Anemia (GEN) Follow Up With: Donita Webber PAC [Physician Water Vessel Captain] - 12/24/16 2:15 pm Nikita Hancock MD [Primary Care Provider] - Additional Instructions: Discharge Instructions: Total Knee Replacement Please call [facility] ([phone]), your Primary Care Physician, or report to the Emergency Room if you have any of the following symptoms: Nausea, vomiting, fever greater that 101.5, swelling, chest pain, shortness of breath, increased pain/redness/drainage/odor for your incision site, numbness/ tingling, or any other concerning symptoms. ACTIVITY:Weight-bearing as tolerated. You may progress off support (crutches or walker) as tolerated. MEDICATIONS: Upon discharge resume your home medications. Take all the medications as prescribed. Take a stool softener if taking narcotic pain medications. Stool softeners are only effective if you drink enough fluids. Drink 6-8 glass of water or fluids a day, unless this is not allowed for another health problem. Despite using stool softeners, if you haven't had a bowel movement in 3 days, please switch to a gentle laxative. Gentle laxatives are sold over the counter. You should have a bowel movement within 24 hours, if not call the office. You will be discharged from the hospital with a prescription for pain medication. You are encouraged to decrease the use of narcotic pain medication as tolerated. Should you require a refill, please call the office. [facility] prescribes narcotic pain medication for only 4-6 weeks after surgery. If you require pain medication beyond this time period, you may be referred to your Primary Care Physician or to the Pain Clinic for further evaluation. Plan ahead for refills on pain medication as many narcotics either need to be picked up at the office or mailed. It is best to call 48-72 hours in advance of needing a prescription refill so you don't run out of medication. To help control the post-operative pain, you may take NSAIDs (Aleve,Advil, Motrin, Ibuprofen, Naprosyn) or Tylenol as prescribed on the bottle in addition to the pain medication. ANTICOAGULATION (blood thinners): Continue your Aspirin, Lovenox or Coumadin as prescribed to help prevent a blood clot in the leg or in the lungs. As long as your incision remains dry and you tolerate the NSAIDs (Aleve, Advil, Motrin, ibuprofen, naprosyn), it is OK to use the NSAIDS while you are taking your anticoagulation medication. Should your incision start to drain, stop the NSAID and contact our office. Common symptoms of blood clot in the legs include: localized pain, swelling, calf tenderness, redness or discoloration of the skin. Blood clot in the lung symptoms include: shortness of breath, rapid pulse, sweating, and chest pain that worsens with deep breathing, coughing up blood, lightheadedness, feelings of anxiety. If you experience any of these symptoms notify your physician immediately, go to the emergency room, or if having trouble breathing, call 911. WOUND CARE: Leave the dressing on for 7 to 10days. You may change the dressing if it becomes saturated greater than 50%. Do not get the dressing wet at anytime. Wash your hands with antibacterial soap, rinse and dry prior to any wound care. If you have jose manuel the visiting nurse or rehab facility can remove the stapes 10-14 days after surgery and place steri-strips across the wound. Leave the steri-strips in place until they fall off on their won. You may let water from the shower run on top of the steri-strips. If you do not have a visiting nurse or rehab facility, you will need to return to the office at 10-14 days for the jose manuel to be removed. If you have itching or redness around the dressing call the office. FOLLOW-UP: Please follow up with your surgeon in the orthopedic clinic in 4 weeks from the day of surgery. If you have jose manuel that need to be removed, you will need to come back to the office in 10-14 days from the day of surgery. - Hospital Course Hospital course: Ms. Clemente is a 56 year old female - Time Spent with Patient Total time spent providing and/or coordinating discharge services: <Rei Rivera - Last Filed: 12/17/16 16:16> Date of Encounter: 12/17/16 Time of Encounter: 16:16 - Discharge Diagnosis (1) Asthma Priority: Secondary Status: Chronic Qualifiers: Asthma severity: unspecified severity Asthma complication type: uncomplicated Qualified Code(s): J45.909 - Unspecified asthma, uncomplicated (2) Obstructive sleep apnea Priority: Secondary Status: Chronic (3) Coronary artery disease Priority: Secondary Status: Chronic Qualifiers: Coronary Disease-Associated Artery/Lesion type: unspecified vessel or lesion type [place] vs. transplanted heart: unspecified whether [place] or transplanted heart Associated angina: angina presence unspecified Qualified Code(s): I25.10 - Atherosclerotic heart disease of [place] coronary artery without angina pectoris (4) Hypertension Priority: Secondary Status: Chronic Qualifiers: Hypertension type: essential hypertension Qualified Code(s): I10 - Essential (primary) hypertension (5) Arthritis of knee, right Priority: Primary Status: Acute (6) Morbid obesity with BMI of 45.0-49.9, adult Priority: Secondary Status: Chronic Primary care physician: Nikita Hancock MD - Patient Status Functional capacity at discharge: uses cane/walker Overall status at discharge: patient is progressing back to baseline - Hospital Course Hospital course: Ms. Clemente is a 56 year old female The patient had an uneventful postoperative course. They received antibiotics and physical therapy and were discharged in stable condition. There will follow -up in the office in 2 weeks. - Time Spent with Patient Total time spent providing and/or coordinating discharge services:
[2016-12-14] MEDS ORDERED: Clindamycin 900 MG/50 ML 900 MG/50 ML IV.SOLN IVPB ONE (11:59)
[2016-12-14] MEDS ORDERED: Albuterol 2.5 MG/3 ML NEBULIZER IH ONE (11:59)
[2016-12-14] MEDS ORDERED: Lidocaine -MPF 1% 2 ML VIAL ID ONE (11:59)
[2016-12-14] MEDS ORDERED: Ringers Solution, Lactated 1,000 ML IVC SCH ×2 (12:00→16:41)
--- NOTE | 2016-12-14 12:29 | History & Physical Report ---
Date of Encounter: 12/14/16 Time of Encounter: 12:28 24 Hour HP Update - Instructions Instructions: If the History and Physical is less than 30 days old and was completed prior to A.M. admission and or procedure and has NOT been updated on calendar day of procedure please complete this update prior to performing procedure. - Update Patient reports changes in Medical Condition: No Changes in examination, assessment, or condition: No Changes in Medication: No Preop tests/diagnostics Reviewed: Yes Surgery Remains Indicated: Yes Consent for Planned Operative Procedure(s) Verified: Yes - Pre-Operative Checklist Preoperative Checklist Indicated: No Prophylactic Antibiotic Ordered: Yes Is VTE Prophylaxis Indicated?: Yes
[2016-12-14] MEDS ORDERED: Famotidine 20 MG/2 ML VIAL IVP ONE (13:11)
[2016-12-14] MEDS ORDERED: Gabapentin 300 MG CAPSULE PO ONE (13:11)
--- NOTE | 2016-12-14 13:45 | Anesthesia Evaluation PreOp ---
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: Denies Any Significant HX Other Medical History: Other (Morbid Obesity) Anesthesia History: No Prior Anesthetic Complications : No Alcohol Use: none Drug use: none Medications and Allergies Albuterol Sulfate [Albuterol Inhaler] 2 puff IH Q4HR PRN 08/24/16 [History] Amlodipine Besylate 10 mg PO DAILY 08/24/16 [History] Carvedilol [Coreg] 6.25 mg PO BIDWM 08/24/16 [History] Clopidogrel [Plavix] 75 mg PO DAILY 08/24/16 [History] Cyclobenzaprine [Flexeril] 10 mg PO TID 08/24/16 [History] Furosemide [Lasix] 20 mg PO DAILY PRN 08/24/16 [History] Gabapentin [Neurontin] 600 mg PO TID 08/24/16 [History] Losartan/Hydrochlorothiazide [Hyzaar 100-25 Tablet] 1 each PO DAILY 08/24/16 [ History] Naproxen [Naprosyn] 500 mg PO BID 08/24/16 [History] Omeprazole [PriLOSEC] 40 mg PO DAILY 08/24/16 [History] Sertraline [Zoloft] 100 mg PO DAILY 08/24/16 [History] Aspirin Enteric Coated [Aspirin EC] 325 mg PO DAILY #21 tablet. 12/13/16 [Rx] OxyCODONE Immed Rel [Roxicodone 5 MG] 5 - 10 mg PO Q6HR PRN #40 tablet 12/13/16 [Rx] Allergies Penicillins [PCN] Adverse Reaction (Verified 12/14/16 12:18) See Comments paralized - Meds/Allergy Pre-op Review Medications Reviewed: Yes Allergies Reviewed: Yes Beta Blockers on Current Med List: Yes (Took Carvedilol today 0700) Anesthesia Results - Labs Laboratory Tests 12/01/16 12/01/16 12/01/16 13:55 13:55 13:55 Hgb 12.6 Hct 40.5 Plt Count 335 PT 11.4 INR 1.1 APTT 27.4 Sodium 141 Potassium 3.8 BUN 9 Creatinine 0.96 - Imaging EKG: report reviewed Anesthesia Exam O2 Sat Height 1.7 m Height 1.7 m Height 1.7 m Weight 141.974 kg Weight 141.974 kg Weight 141.974 kg O2 Sat by Pulse Oximetry 93 Vital Signs Temp Pulse Resp BP Pulse Ox 98.0 F 85 18 146/77 93 12/14/16 11:59 12/14/16 11:59 12/14/16 11:59 12/14/16 11:59 12/14/16 11:59 Height: 5'7 Weight: 313 lbs NPO (# of Hours): MN Pain Scale: 0 - HEENT Pupil (Motor): Pupils equal, EOMI Mallampati: III Teeth: Normal Oral Opening: Less than or equal to 3 - PRETZEL TWISTING MACHINE OPERATOR LOC: Oriented PRETZEL TWISTING MACHINE OPERATOR Motor: Normal RUE, Normal LUE, Normal RLE, Normal LLE, Normal Face PRETZEL TWISTING MACHINE OPERATOR Sensory: Normal: RUE, LUE, RLE, LLE, Face - Cardiac Rhythm: Regular Murmur: None JVD: No Carotid Bruit: No - Pulmonary Breath Sounds: bilateral Clear Respiratory Effort: Symmetrical Anesthesia Assess/Plan ASA Score: 3 (CAD HTN SHAYNE Morbid Obesity) Anesthetic Plan: General, Regional Monitoring Plan: Standard Monitors Recovery Plan: PACU (Discussed GA and RA, agrees to proceed)
[2016-12-14] MEDS ORDERED: Tetracaine/PF 20 MG/2 ML AMPUL ONE (14:06)
[2016-12-14] MEDS ORDERED: ROPIVACAINE HCL/PF 0.5% 30 ML VIAL ONE (14:06)
[2016-12-14] MEDS ORDERED: Bupivacaine/Clonidine Syringe 1 EACH SYRINGE ONE (14:07)
--- NOTE | 2016-12-14 14:42 | Anesthesia Procedures ---
Date of Encounter: 12/14/16 Time of Encounter: 14:40 Procedures: Anesthesia - Nerve Block Procedure Date: 12/14/16 Time: 14:20 Allergies/Adv Reactions: PCN Pre-op Diagnosis: R Knee arthritis Surgical Procedure: R TKA Checklist: Correct Patient Identifier, Correct procedure, History checked Correct side: Right Blood Thinner: No Monitor Applied: EKG, BP, Pulse Oximetry Supplemental Oxygen via Nasal Cannula (L/min): 3 Sedation: Versed (mg): 2 Sedation: Fentanyl (mcg): 100 Indication: Post Op Analgesia (requested by Dr. Rivera) Pre-op Neuro Deficits: No Block Type: Femoral, Other (iPACK) Catheter placed: No Sterile Technique: Yes Ultrasound used: Yes Anatomy identified: Yes Visual spread of Local: Yes Neuro Stimulation: Yes Nerve Stimulator Range: 0.2 - 0.4 mA Blood on Needle Aspiration: No Smooth Injection of Local: Yes Pain with Injection of Local: No Prep: Chlorhexadine Needle: 22 x 50 mm Stimuplex (femoral n. block), 21 x 100 mm Stimuplex (iPACK block) Local: 0.25% Bupivicaine w/Clonidine 20 mcg/cc (20mL for iPACK), Tetracaine ( 4mL 1% for femoral n. block), Ropivacaine (30mL 0.5% for femoral n. block)
[2016-12-14] MEDS ORDERED: Ondansetron 4 MG/2 ML VIAL IVP PRN ×2 (14:44→16:41)
[2016-12-14] MEDS ORDERED: *HR* HYDROmorphone (PF) 1 MG/ML SYRINGE IVP PRN ×2 (14:44→16:41)
[2016-12-14] MEDS ORDERED: *HR* Labetalol 20 MG/4 ML SYRINGE IVP PRN (14:44)
[2016-12-14] MEDS ORDERED: Lidocaine -MPF 2% 2 ML VIAL ONE (15:25)
[2016-12-14] MEDS ORDERED: *HR* Midazolam HCl 2 MG/2 ML VIAL ONE (15:25)
[2016-12-14] MEDS ORDERED: *HR* FentaNYL (PF) 100 MCG/2 ML VIAL ONE (15:25)
[2016-12-14] MEDS ORDERED: *HR* Propofol 200 MG/20 ML VIAL IVP ONE (15:25)
--- NOTE | 2016-12-14 15:26 | Orthopedic Operative Note ---
Date of procedure: 12/14/16 Pre-op diagnosis: Right Knee arthritis Post-op diagnosis: same Procedure: Procedure: Right Total knee replacement Estimated blood loss: 200 cc Hardware: Arthrex Femur: 5 Tibia: 5 PS insert:12 Patella:34 Exam Under anesthesia: loss of full extension 10 degrees, full flexion no instability Procedural Notes:Grade 4 arthritic all 3 compartments Operative procedure: The patient was brought to the operating room and placed on the operating room table. After general anesthesia was administered the operative knee was examined. Findings were noted in the exam under anesthesia. The operative extremity was prepped and draped in sterile surgical fashion. The patient received IV antibiotics prior to skin incision. A standard midline incision was made centered over the patella. The incision was made through the skin and subcutaneous tissue. A medial parapatellar tendon approach was performed. Care was taken to preserve tissue along the medial aspect of the patella. And to protect the patella tendon. The deep MCL was released off the medial tibia. The infra patella fat pad was excised. Knee was brought into flexion. Patient noted to have grade 4 arthritic changes all 3 compartments. The entry hole was made for the intramedullary femoral guide. The guide was seated in 6 degrees of valgus. Anterior cut was made followed by the distal cut. The ACL the PCL the medial and the lateral menisci were excised. The tibia was subluxed forward. The entry hole was made for the intramedullary tibial guide. Guide was seated to resect 2 mm off the more abnormal side. The knee was brought into flexion the distal femur was sized to a 5. The femoral guide was seated, the anterior cut was made followed by the posterior condylar cut, followed by the chamfer cuts. The finishing guide was seated the box cut was made and the lug holes were drilled. The tibia was sized to a 5, the tibial tray was seated and prepared with the large drill followed by the fin cutter. Trial reduction revealed full extension no varus valgus instability with the appropriate 12 PS Darcy. The patella was everted and cut was made at the level of the insertion of the quadriceps and patella tendon. The patella was sized to a 34 the guide was seated and the lug holes are drilled. Trial reduction revealed excellent patella tracking. All trial components were removed all bony surfaces were irrigated. The tibia was cemented first followed by the femur. The 12 PS Darcy was seated and the knee was brought into full extension. The patella was cemented and held in place with the patellar holding clamp. After the cement had hardened, the knee sat for 2 minutes with a Betadine saline solution. The knee was then irrigated out with 2 L of pulse irrigation. The extensor mechanism was closed with #2 FiberWire suture and #2 PDS suture. The subcutaneous tissue was then irrigated and closed deep with #1 PDS suture superficially with 0 PDS suture and skin was closed with skin jose manuel. The patient was then placed in a sterile dressing and a postoperative brace extubated and transferred to recovery room in stable condition. Anesthesia: SUMA Surgeon: Rei Rivera Supervisor Baking: Donita Webber Condition: stable Disposition: PACU
[2016-12-14] MEDS ORDERED: Ketorolac 30 MG/ML VIAL ONE (15:27)
[2016-12-14] MEDS ORDERED: Ondansetron 4 MG/2 ML VIAL ONE (15:27)
[2016-12-14] MEDS ORDERED: *HR* HYDROmorphone 2 MG/ML SYRINGE ONE (15:28)
[2016-12-14 16:14] LABS: Hematocrit 38.5 % (35.3-44.9); Hemoglobin 11.5 g/dL (11.5-15.4)
--- NOTE | 2016-12-14 16:22 | Anesthesia Evaluation Post Op ---
Date of Encounter: 12/14/16 Time of Encounter: 16:21 - Vital Signs Vital Signs: Vital Signs/O2 Sat/Glucose, Most Current Temp Pulse Resp BP Pulse Ox 12/14/16 16:12 64 14 125/83 100 12/14/16 16:02 97.1 F L 66 12 114/95 96 12/14/16 16:00 14 92 12/14/16 15:52 67 16 116/73 93 12/14/16 15:42 64 16 103/64 96 12/14/16 15:32 97.0 F L 65 16 131/77 96 12/14/16 14:06 73 139/61 100 - Lungs Lungs: Clear Ascult./Percussion - Airway Airway: Obstructed (treated with CPAP) - Cardiovascular Regular Rate - Mental Status Mental Status: Asleep with brisk response to light stimulation - Pain Pain Scale: 0 Pain Scale used: Numeric (1 - 10) - Nausea Vomiting Nausea Vomiting: Not Present - Hydration Hydration: NPO Notes: 12/14/16 16:22 pt being transferred to floor on CPAP - Discharge PostOp Status: Transfer Patient to floor
[2016-12-14] MEDS ORDERED: Sennosides 8.6 MG TABLET PO PRN (16:41)
[2016-12-14] MEDS ORDERED: Temazepam 15 MG CAPSULE PO PRN (16:41)
[2016-12-14] MEDS ORDERED: Naloxone 0.4 MG/ML INJ IVP PRN (16:41)
[2016-12-14] MEDS ORDERED: MOM Conc 10 ML UD.LIQ PO PRN (16:41)
[2016-12-14] MEDS ORDERED: *HR* OxyCODONE Immed Rel 5 MG TABLET PO PRN (16:41)
[2016-12-14] MEDS ORDERED: Furosemide 20 MG TABLET PO PRN (16:41)
[2016-12-14] MEDS ORDERED: *HR* Enoxaparin 30 MG/0.3 ML SYRINGE SQ SCH (18:00)
[2016-12-14] MEDS: Gabapentin 300 MG CAPSULE PO SCH ×2 (18:19→19:41)
[2016-12-14] MEDS: *HR* Enoxaparin 30 MG/0.3 ML SYRINGE SQ SCH (18:39)
[2016-12-14] MEDS: Clindamycin 900 MG/50 ML 900 MG/50 ML IV.SOLN IVPB SCH (19:41)
[2016-12-15] MEDS: Clindamycin 900 MG/50 ML 900 MG/50 ML IV.SOLN IVPB SCH (03:59)
[2016-12-15] MEDS: *HR* Enoxaparin 30 MG/0.3 ML SYRINGE SQ SCH ×2 (03:59→16:56)
--- NOTE | 2016-12-15 06:27 | Orthopedics Progress Note ---
Date of Encounter: 12/15/16 Time of Encounter: 06:27 - Assessment and Plan (1) Asthma Current Visit: No Status: Chronic Qualifiers: Asthma severity: unspecified severity Asthma complication type: uncomplicated Qualified Code(s): J45.909 - Unspecified asthma, uncomplicated (2) Obstructive sleep apnea Current Visit: No Status: Chronic (3) Coronary artery disease Current Visit: No Status: Chronic Qualifiers: Coronary Disease-Associated Artery/Lesion type: unspecified vessel or lesion type [place] vs. transplanted heart: unspecified whether [place] or transplanted heart Associated angina: angina presence unspecified Qualified Code(s): I25.10 - Atherosclerotic heart disease of [place] coronary artery without angina pectoris (4) Hypertension Current Visit: No Status: Chronic Qualifiers: Hypertension type: essential hypertension Qualified Code(s): I10 - Essential (primary) hypertension (5) Arthritis of knee, right Current Visit: Yes Status: Acute (6) Morbid obesity with BMI of 45.0-49.9, adult Current Visit: Yes Status: Chronic Subjective Interval history: Patient was seen this morning doing well without complaints. Afebrile vital signs stable. Operative extremity: Neurovascularly intact Dressing clean dry and intact Calves nontender Assessment and plan: Continue with postoperative care Hematocrit 38 Objective Vital signs: Vital Signs Temp Pulse Resp BP Pulse Ox 12/15/16 03:26 99.6 F 77 20 121/77 99 12/15/16 00:35 98.7 F 73 19 129/89 97 12/14/16 19:34 98.4 F 75 18 136/60 96 12/14/16 19:26 98.4 F 75 18 136/60 96 12/14/16 18:35 97.9 F 74 21 115/56 94 12/14/16 17:46 97.7 F 67 20 111/52 94 12/14/16 17:00 98.7 F 60 14 99/51 97 12/14/16 16:36 98.7 F 61 20 105/56 98 12/14/16 16:23 99 F 59 14 116/55 99 12/14/16 16:12 64 14 125/83 100 12/14/16 16:02 97.1 F L 66 12 114/95 96 12/14/16 16:00 14 92 12/14/16 15:52 67 16 116/73 93 12/14/16 15:42 64 16 103/64 96 12/14/16 15:32 97.0 F L 65 16 131/77 96 12/14/16 14:06 73 139/61 100 12/14/16 11:59 98.0 F 85 18 146/77 93 Intake and Output 12/14/16 12/14/16 12/15/16 15:59 23:59 07:59 Intake Total 50 / 50 200 / 200 150 / 150 Output Total 200 / 200 Balance -150 / -150 200 / 200 150 / 150 Intake: IV Fluids 50 / 50 50 / 50 Cleocin Premix 900 MG/50 50 / 50 50 / 50 ML 900 mg In 50 ml @ 50 mls/hr IVPB Q8H GE Rx#: [id number] Oral 200 / 200 100 / 100 Output: Estimated Blood Loss 200 / 200 Other: Weight 141.974 kg - Labs CBC & BMP: 12/14/16 15:51 - VTE Documentation of Mechanical Device: Venous foot pump, device Consult Discharge Plan - Plan Referrals: Nikita Hancock MD [Primary Care Provider] -
[2016-12-15 06:35] LABS: Hematocrit 35.5 % (35.3-44.9); Hemoglobin 10.4 g/dL (11.5-15.4)
[2016-12-15 06:39] LABS: Calcium 8.5 mg/dL (8.6-10.8); Potassium 4.4 mEq/L (3.5-4.5)
[2016-12-15] MEDS: amLODIPine 5 MG TABLET PO SCH (08:57)
[2016-12-15] MEDS: *HR* OxyCODONE Immed Rel 5 MG TABLET PO PRN ×2 (08:57→14:55)
[2016-12-15] MEDS: Losartan/HCTZ 50-12.5 TABLET PO SCH (08:57)
[2016-12-15] MEDS: Gabapentin 300 MG CAPSULE PO SCH ×3 (08:58→20:15)
[2016-12-16] MEDS: *HR* Enoxaparin 30 MG/0.3 ML SYRINGE SQ SCH (04:34)
[2016-12-16] MEDS: *HR* OxyCODONE Immed Rel 5 MG TABLET PO PRN ×2 (04:39→09:52)
[2016-12-16 05:24] LABS: Hematocrit 32.4 % (35.3-44.9); Hemoglobin 9.8 g/dL (11.5-15.4)
[2016-12-16 05:36] LABS: BUN/Creatinine Ratio 16 (6-26); Blood Urea Nitrogen 16 mg/dL (7-20); Calcium 8.7 mg/dL (8.6-10.8); Carbon Dioxide 29 mEq/L (19-29); Chloride 102 mEq/L (98-109); Glucose 113 mg/dL (70-99); Osmolality,Calculated 290 (280-300); Potassium 3.7 mEq/L (3.5-4.5); Sodium 139 mEq/L (136-145); eGFR For African Americans > 60 (> 60); eGFR For Non-African Americans 55 (> 60)
[2016-12-16] MEDS: Gabapentin 300 MG CAPSULE PO SCH (08:03)
[2016-12-16] MEDS: amLODIPine 5 MG TABLET PO SCH (08:03)
[2016-12-16] MEDS: Losartan/HCTZ 50-12.5 TABLET PO SCH (08:04)
--- NOTE | 2016-12-16 08:21 | Orthopedics Progress Note ---
Date of Encounter: 12/16/16 Time of Encounter: 08:21 - Assessment and Plan (1) Asthma Current Visit: No Status: Chronic Qualifiers: Asthma severity: unspecified severity Asthma complication type: uncomplicated Qualified Code(s): J45.909 - Unspecified asthma, uncomplicated (2) Obstructive sleep apnea Current Visit: No Status: Chronic (3) Coronary artery disease Current Visit: No Status: Chronic Qualifiers: Coronary Disease-Associated Artery/Lesion type: unspecified vessel or lesion type [place] vs. transplanted heart: unspecified whether [place] or transplanted heart Associated angina: angina presence unspecified Qualified Code(s): I25.10 - Atherosclerotic heart disease of [place] coronary artery without angina pectoris (4) Hypertension Current Visit: No Status: Chronic Qualifiers: Hypertension type: essential hypertension Qualified Code(s): I10 - Essential (primary) hypertension (5) Arthritis of knee, right Current Visit: Yes Status: Acute (6) Morbid obesity with BMI of 45.0-49.9, adult Current Visit: Yes Status: Chronic Subjective Interval history: Patient was seen this morning doing well without complaints. Afebrile vital signs stable. Operative extremity: Neurovascularly intact Dressing clean dry and intact Cal[place] nontender Assessment and plan: Continue with postoperative care Hematocrit 32 Objective Vital signs: Vital Signs Temp Pulse Resp BP Pulse Ox 12/16/16 06:39 98.7 F 78 18 158/83 95 12/16/16 04:07 99 F 73 19 162/88 95 12/16/16 04:00 95 12/15/16 23:22 98.5 F 80 18 172/83 94 12/15/16 19:21 100.0 F H 72 19 154/78 95 12/15/16 14:57 98.6 F 89 20 152/67 98 12/15/16 11:06 98.6 F 102 18 182/74 93 Intake and Output 12/15/16 12/16/16 12/16/16 23:59 07:59 15:59 Intake Total 320 / 320 50 / 50 Output Total 650 / 650 150 / 150 Balance -330 / -330 -100 / -100 Intake: Oral 320 / 320 50 / 50 Output: Urine 650 / 650 150 / 150 Other: Meal Dinner Percent of Meal Consumed 80% - Labs CBC & BMP: 12/16/16 05:14 12/16/16 05:14 Labs: Abnormal lab results Hgb 9.8 g/dL (11.5-15.4) L 12/16/16 05:14 Hct 32.4 % (35.3-44.9) L 12/16/16 05:14 Est GFR (Non-Af Amer) 55 (> 60) L 12/16/16 05:14 Glucose 113 mg/dL (70-99) H 12/16/16 05:14 - VTE Documentation of Mechanical Device: Venous foot pump, device Consult Discharge Plan - Plan Referrals: Nikita Hancock MD [Primary Care Provider] -
[2016-12-16 11:19] VITALS: BP 149/83
== END 2016-12-16 12:15 | DRG 470 ==
LOC: SAMDAY 11:42 → 3NENU 15:57
PROVIDERS: ADMIT Orthopaedic Surgery; ATTEND Orthopaedic Surgery